=== PATIENT | female | born 1960 | race Caucasian/White ===

== ENCOUNTER 2017-01-10 13:48 | Emergency (ER) | payer SELFPAY ==
[~2017-01-10 13:48] MED LIST: AMOX500C; GUAI120S; HYDR25TA9; LISI20TA; LORA10TA3; PANT40TA3; SERT50TA; [UNRECOGNIZED DRUG - CODE]
[2017-01-10 14:54] LABS: BASO % 0 % (0-3); EOS % 0 % (0-3); HEMATOCRIT 42.3 % (36.0-47.0); HEMOGLOBIN 14.4 g/dL (12.0-15.5); LYMPH # 1.9 x10^3/uL (1.0-4.8); LYMPH % 21 % (24-48); MEAN CORPUSCULAR HEMOGLOBIN 35 pg (25-35); MEAN CORPUSCULAR HGB CONC 34 g/dL (31-37); MEAN CORPUSCULAR VOLUME 102 fL (79-100); MONO # 0.8 x10^3/uL (0.0-1.1); MONO % 9 % (0-9); NEUT # 6.2 x10^3uL (1.8-7.7); NEUT % 69 % (31-73); PLATELET COUNT 147 x10^3/uL (140-400); RED BLOOD COUNT 4.16 x10^6/uL (3.50-5.40); RED CELL DISTRIBUTION WIDTH 13.5 % (11.5-14.5); WHITE BLOOD COUNT 8.9 x10^3/uL (4.0-11.0)
--- NOTE | 2017-01-10 15:05 | RAD ---
Portable chest, 01/10/2017: History: Fall, stroke like symptoms, altered mental status Comparison is made to a study from 12/27/2015. The heart size and pulmonary vascularity are normal. No pulmonary infiltrates are seen. There is a calcified granuloma in the left base. There is no evidence of pleural fluid. IMPRESSION: No acute cardiopulmonary abnormality is detected.
--- NOTE | 2017-01-10 15:06 | ED.ADGEN ---
Past History Past Medical History: Anxiety, Depression, Hypertension Past Surgical History: Appendectomy Smoking: Greater than 1 pack/day Alcohol Use: Heavy Drug Use: None Adult General Chief Complaint Chief Complaint Cannot move Right side HPI HPI Patient is a 56 year old female who presents with three-day history of slurred speech, right facial droop, and inability to move the right arm, inability to walk and barely move the right leg. Patient is a chronic alcoholic and falls frequently. No nausea vomiting but has had some diarrhea. No chest pain or shortness of breath or headache. Review of Systems Review of Systems Constitutional: Denies fever or chills [] Eyes: Denies change in visual acuity, redness, or eye pain [] HENT: Denies nasal congestion or sore throat [] Respiratory: Denies cough or shortness of breath [] Cardiovascular: No additional information not addressed in HPI [] GI: Denies abdominal pain, nausea, vomiting, bloody stools or diarrhea [] : Denies dysuria or hematuria [] Musculoskeletal: Denies back pain or joint pain [] Integument: Denies rash or skin lesions [] Neurologic: Denies headache, focal weakness or sensory changes [] Endocrine: Denies polyuria or polydipsia [ All systems negative except as mentioned in the history present illness] Current Medications Current Medications Current Medications Medications (Trade) Dose Ordered Sig/[facility] Start Time Stop Time Status Last Admin Dose Admin Thiamine HCl 100 mg/Sodium Chloride 51 ml @ 102 mls/hr DAILY 01/11/17 09:00 Allergies Allergies Allergies Coded Allergies Type Severity Reaction Last Updated Verified No Known Drug Allergies 11/02/13 No Physical Exam Physical Exam Constitutional: Well developed, well nourished, no acute distress, non-toxic appearance. [] HENT: Normocephalic, atraumatic, bilateral external ears normal, oropharynx moist, no oral exudates, nose normal. [] Eyes: PERRLA, EOMI, conjunctiva normal, no discharge. [] Neck: Normal range of motion, no tenderness, supple, no stridor. [] Cardiovascular:Heart rate regular rhythm, no murmur [] Lungs & Thorax: Bilateral breath sounds clear to auscultation [] Abdomen: Bowel sounds normal, soft, no tenderness, no masses, no pulsatile masses. [] Skin: Warm, dry, no erythema, no rash. [] Back: No tenderness, no CVA tenderness. [] Extremities: No tenderness, no cyanosis, no clubbing, ROM intact, no edema. [] Neurologic: Alert not oriented to year or month; right facial droop, tongue deviation to the right right lateral gaze palsy right ashley-neglect, right arm paresis no rn admissions strength right leg very weak left arm and leg are normal on exam with good finger to nose and heel to perez; slight difficulty handling secretions Psychologic: Affect normal, judgement normal, mood normal. [] NIH score obtained: 14 Current Patient Data Vital Signs Vital Signs Date Time Temp Pulse Resp B/P (MAP) Pulse Ox O2 Delivery O2 Flow Rate FiO2 01/10/17 13:48 98.5 67 18 98 Room Air Lab Results Laboratory Tests Test 01/10/17 14:38 01/10/17 15:10 White Blood Count 8.9 x10^3/uL (4.0-11.0) Red Blood Count 4.16 x10^6/uL (3.50-5.40) Hemoglobin 14.4 g/dL (12.0-15.5) Hematocrit 42.3 % (36.0-47.0) Mean Corpuscular Volume 102 fL (79-100) H Mean Corpuscular Hemoglobin 35 pg (25-35) Mean Corpuscular Hemoglobin Concent 34 g/dL (31-37) Red Cell Distribution Width 13.5 % (11.5-14.5) Platelet Count 147 x10^3/uL (140-400) Neutrophils (%) (Auto) 69 % (31-73) Lymphocytes (%) (Auto) 21 % (24-48) L Monocytes (%) (Auto) 9 % (0-9) Eosinophils (%) (Auto) 0 % (0-3) Basophils (%) (Auto) 0 % (0-3) Neutrophils # (Auto) 6.2 x10^3uL (1.8-7.7) Lymphocytes # (Auto) 1.9 x10^3/uL (1.0-4.8) Monocytes # (Auto) 0.8 x10^3/uL (0.0-1.1) Eosinophils # (Auto) 0.0 x10^3/uL (0.0-0.7) Basophils # (Auto) 0.0 x10^3/uL (0.0-0.2) Sodium Level 140 mmol/L (136-145) Potassium Level 3.2 mmol/L (3.5-5.1) L Chloride Level 102 mmol/L (98-107) Carbon Dioxide Level 26 mmol/L (21-32) Anion Gap 12 (6-14) Blood Urea Nitrogen 16 mg/dL (7-20) Creatinine 0.7 mg/dL (0.6-1.0) Estimated GFR (Cockcroft-Gault) 86.9 BUN/Creatinine Ratio 23 (6-20) H Glucose Level 93 mg/dL (70-99) Calcium Level 9.4 mg/dL (8.5-10.1) Total Bilirubin 1.1 mg/dL (0.2-1.0) H Aspartate Amino Transferase (AST) 28 U/L (15-37) Alanine Aminotransferase (ALT) 29 U/L (14-59) Alkaline Phosphatase 96 U/L (46-116) Creatine Kinase 209 U/L (26-192) H Troponin I Quantitative 0.042 ng/mL (0-0.055) Total Protein 8.1 g/dL (6.4-8.2) Albumin 4.0 g/dL (3.4-5.0) Albumin/Globulin Ratio 1.0 (1.0-1.7) Ethyl Alcohol Level < 10 mg/dL (0-10) Urine Collection Type U cath Urine Color Anahi Urine Clarity Cloudy Urine pH 6.0 Urine Specific Jasper 1.020 Urine Protein 100 mg/dl (NEG-TRACE) Urine Glucose (UA) Neg mg/dL (NEG) Urine Ketones (Stick) >=160 mg/dL (NEG) Urine Blood Mod (NEG) Urine Nitrite Neg (NEG) Urine Bilirubin Neg (NEG) Urine Urobilinogen Dipstick 4 mg/dL (0.2 mg/dL) Urine Leukocyte Esterase Small (NEG) Urine RBC 1-2 /HPF (0-2) Urine WBC 20-40 /HPF (0-4) Urine Squamous Epithelial Cells Mod /LPF Urine Bacteria Many /HPF (0-FEW) Urine Opiates Screen Pos (NEG) Urine Methadone Screen Neg (NEG) Urine Barbiturates Neg (NEG) Urine Phencyclidine Screen Neg (NEG) Urine Amphetamine/Methamphetamine Neg (NEG) Urine Benzodiazepines Screen Neg (NEG) Urine Cocaine Screen Neg (NEG) Urine Cannabinoids Screen Pos (NEG) Urine Ethyl Alcohol Neg (NEG) EKG EKG EKG normal sinus rhythm rate of 67 no STEMI QTC 485 interpretation by me [] Radiology/Procedures Radiology/Procedures CT head and cervical spine negative per radiology report Chest x-ray [] unit per my review Course & Med Decision Making Course & Med Decision Making Pertinent Labs and Imaging studies reviewed. (See chart for details) CT head shows obvious large ischemic stroke in the left frontal lobe no bleeding per the radiology report CT cervical spine no fracture or dislocation per the radiology report Chest x-ray was negative my interpretation my independent review the images Discussed with patient and family imaging and lab results. Patient is not a candidate for TPA given the three-day duration of symptoms. 1600 hrs. Family requested transfer to [facility];. talked to Dr. Wu is accepted the transfer. [] Final Impression Final Impression Subacute CVA, right hemiplegia, alcohol abuse [] Problems: Dragon Disclaimer Dragon Disclaimer This electronic medical record was generated, in whole or in part, using a voice recognition dictation system. JAMILA SARAVIA MD Jan 10, 2017 15:06
[2017-01-10 15:08] LABS: CALCIUM 9.4 mg/dL (8.5-10.1); CREATININE 0.7 mg/dL (0.6-1.0); GFR 86.9; POTASSIUM 3.2 mmol/L (3.5-5.1); TOTAL BILIRUBIN 1.1 mg/dL (0.2-1.0); TOTAL PROTEIN 8.1 g/dL (6.4-8.2)
--- NOTE | 2017-01-10 15:18 | RAD ---
CT of the head without contrast, 01/10/2017: History: Fall, confusion, altered mental status Comparison is made to a study from 05/17/2015. There is a new moderate sized area of decreased density in the left cerebral hemisphere centered in the lateral frontal region. There is deep extension into the lateral aspect of the left basal ganglia. There is effacement of the overlying cortical sulci. The appearance is that of edema, most likely due to a recent or subacute infarct. No acute hemorrhage is seen. Minimal basal ganglia calcifications are present. The ventricles are not enlarged. There is only a slight left to right shift of the midline structures. The cerebellum and brainstem are unremarkable. There is unchanged chronic opacification of the left maxillary sinus with calcifications. IMPRESSION: New moderate sized area of decreased density centered in the left frontal lobe suggesting a recent or subacute infarct. An infectious or neoplastic process is less likely. MR scanning is suggested for further evaluation, if clinically indicated. CT of the cervical spine without contrast, 01/10/2017: Noncontrast scans were obtained with multiplanar reconstructions produced. There are moderate scattered spurs in the mid and lower cervical spine. There are mild degenerative changes involving scattered facet joints bilaterally. No acute fracture or dislocation is identified. There appear to be moderate posterior disc bulges at C5-6 and C6-7. No high-grade central spinal stenosis is evident. IMPRESSION: 1. Moderate degenerative change. 2. No acute bony abnormality is detected. PQRS Compliance Statement: One or more of the following individualized dose reduction techniques were utilized for this examination: 1. Automated exposure control 2. Adjustment of the mA and/or kV according to patient size 3. Use of iterative reconstruction technique
[2017-01-10 15:30] LABS: BARBITURATES NEG (NEG); BENZODIAZEPINES NEG (NEG); CANNABINOIDS POS (NEG); COCAINE NEG (NEG); METHADONE NEG (NEG); OPIATES POS (NEG); PHENCYCLIDINE NEG (NEG)
[2017-01-10 15:31] LABS: AMPHETAMINE/METHAMPHETAMINE NEG (NEG)
[2017-01-10 15:34] LABS: BILIRUBIN,URINE NEG (NEG); CLARITY,URINE CLOUDY; COLOR,URINE AMBER; GLUCOSE,URINE NEG (NEG); NITRITE,URINE NEG (NEG); UROBILINOGEN,URINE 4 mg/dL (0.2 mg/dL)
[2017-01-10 15:35] LABS: BACTERIA,URINE MANY /HPF (0-FEW); SQUAMOUS EPITHELIAL CELL,UR MOD /LPF; WBC,URINE 20-40 /HPF (0-4)
--- NOTE | 2017-01-10 16:04 | EKG ---
[address] [address] Test Date: 2017-01-10 Test Time: 15:02:49 Pat Name: BHAVANI HORTON Department: Room: Gender: F Food Tester: NINA : 1960 Requested By: JAMILA SARAVIA Order Number: [id number] Reading MD: Lauro Houston Measurements Intervals [place] Rate: 67 P: 26 WI: 138 QRS: 60 QRSD: 96 T: 49 QT: 456 QTc: 485 Interpretive Statements SINUS RHYTHM Electronically Signed On 01-11-2017 11:10:58 CDT by Lauro Houston
[2017-01-10 18:53] VITALS: BP 153/89
[2017-01-11] MEDS ORDERED: THIAMINE 100 MG in IV NORMAL SALINE 50ML 50 ML IV SCH (09:00)
== END 2017-01-10 19:07 | disposition short-term general hospital (02) ==
LOC: ER 13:48
DX: I63.8 Other cerebral infarction (principal); G81.91 Hemiplegia, unspecified affecting right dominant side; F10.10 Alcohol abuse, uncomplicated; I10 Essential (primary) hypertension; F41.9 Anxiety disorder, unspecified; F32.9 Major depressive disorder, single episode, unspecified; F17.200 Nicotine dependence, unspecified, uncomplicated
CPT/HCPCS: 36415; 70450; 71010; 72125; 80053; 80305; 80320; 81001; 82550; 84484; 85027; 87086; 87186; 93005; 96365; G0480; G0481; 99285-25

== ENCOUNTER → 2017-08-10 | Outpatient (CLI) | payer MEDICAID ==
--- NOTE | 2017-08-13 13:56 | RAD ---
DATE: 08/13/2017 EXAM: DIGITAL SCREEN BILAT W/CAD HISTORY: Screening Mammogram COMPARISON: Diagnostic right breast mammogram 12/24/2013, bilateral diagnostic mammogram 12/02/2013 This study was interpreted with the benefit of Computerized Aided Detection (CAD). The breast parenchyma is heterogeneously dense, which could reduce sensitivity of mammography. Breast parenchyma level C. FINDINGS: Bilateral digital 2-D CC and MLO views. There are 2 biopsy clips in the right breast. There are bilateral benign-appearing breast calcifications, some of which are new from 2014 examination. No suspicious mass, calcification or architectural distortion. IMPRESSION: No mammographic evidence of malignancy. Recommend routine screening mammogram in 12 months. BI-RADS CATEGORY: 2 BENIGN FINDING(S) RECOMMENDED FOLLOW-UP: 12M 12 MONTH FOLLOW-UP PQRS compliance statement: Patient information was entered into a reminder system with a target due date for the next mammogram. Mammography is a sensitive method for finding small breast cancers, but it does not detect them all and is not a substitute for careful clinical examination. A negative mammogram does not negate a clinically suspicious finding and should not result in delay in biopsying a clinically suspicious abnormality. "Our facility is accredited by the [employer] Mammography Program."
== END | disposition home or self-care (01) ==
LOC: MAMMO 12:42
PROVIDERS: ATTEND General Practice
DX: F17.200 Nicotine dependence, unspecified, uncomplicated (principal); Z12.31 Encounter for screening mammogram for malignant neoplasm of breast
CPT/HCPCS: 77067